=== PATIENT | male | born 1955 | race Hispanic/Latino ===

== ENCOUNTER 2017-09-25 09:56 | Observation (INO) | payer OTHER ==
[~2017-09-25] VITALS: Ht 170.2 cm; Wt 73.8 kg
[~2017-09-25 09:56] MED LIST: BENZ-51 PO; BUSP15TA3 PO; CLOP75TA14 PO; FURO20TA4 PO; HYDR-4068 PO; ISOS60TA4 PO; METF500T6 PO; NITR0.4T50 SL; RAMI2.5C15 PO; SIMV80TA7 PO; TRAM50TA4 PO
[2017-09-25 10:42] LABS: BASOPHILS % (AUTO) 0.4 % (0.0-5.0); EOSINOPHILS % (AUTO) 1.8 % (0.0-8.0); HEMATOCRIT 39.7 % (42-54); LYMPHOCYTES % (AUTO) 18.5 % (21.0-51.0); MEAN CORPUSCULAR HGB CONC 34.6 g/dL (32.0-36.0); MEAN CORPUSCULAR VOLUME 92.4 fL (79-99); MONOCYTES % (AUTO) 7.5 % (3.0-13.0); NEUTROPHILS % (AUTO) 71.8 % (40.0-77.0); PLATELET COUNT (AUTO) 92 K/uL (130-400); RED CELL DISTRIBUTION WIDTH 13.8 % (11.0-15.5); WHITE BLOOD COUNT (AUTO) 7.1 K/uL (4.8-10.8)
[2017-09-25 10:50] LABS: CREATININE 0.9 mg/dL (0.5-1.5); POTASSIUM 3.6 mmol/L (3.5-5.1)
[2017-09-25 10:53] LABS: INR 1.04 (0.85-1.15); PARTIAL THROMBOPLASTIN TIME 29.2 SEC (26.3-35.5); PROTHROMBIN TIME 10.9 SEC (9.6-11.6)
[2017-09-25 11:03] LABS: ALBUMIN 2.9 g/dL (3.5-5.0); BILIRUBIN,TOTAL 0.5 mg/dL (0.2-1.0); CREATINE KINASE MB 1.4 ng/mL (0.5-3.6); TOTAL PROTEIN, SERUM 6.2 g/dL (6.0-8.3)
[2017-09-25] MEDS ORDERED: SODIUM CHLORIDE 0.9% 1000ML 1,000 ML IV ONE (11:03)
[2017-09-25] MEDS ORDERED: ONDANSETRON HCL MDV 20ML 2 MG/ML VIAL ONE ×3 (11:03→23:52)
[2017-09-25] MEDS ORDERED: MORPHINE SULFATE 4 MG/1ML SYG ONE ×2 (11:03→17:33)
[2017-09-25 13:21] LABS: APPEARANCE,URINE Clear (CLEAR); BILIRUBIN,URINE Negative (NEGATIVE); COLOR,URINE Dark Yellow (YELLOW); GLUCOSE, URINE (UA) >=1000 mg/dL (NEGATIVE); KETONES,URINE Trace mg/dL (NEGATIVE); LEUKOCYTE ESTERASE ,URINE Negative (NEGATIVE); NITRATE,URINE Negative (NEGATIVE); OCCULT BLOOD,URINE Negative (NEGATIVE); PROTEIN,URINE POS 1+ (NEGATIVE)
[2017-09-25 13:39] LABS: RBC,URINE 0-1 /HPF (0-1); WBC,URINE 0-1 /HPF (0-1)
[2017-09-25 13:40] LABS: BACTERIA,URINE Rare /HPF (None Seen); MUCUS,URINE Few LPF (None Seen); SQUAMOUS EPITHELIAL CELL,UR Few /HPF (0-2)
[2017-09-25] MEDS ORDERED: IOPAMIDOL-370 75 ML VIAL IV ONE (22:40)
[2017-09-25] MEDS ORDERED: DIATR MEGLU/DIATRIZOATE SODIUM 30 ML BOTTLE ONE (22:54)
[2017-09-25] MEDS ORDERED: ACETAMINOPHEN 325 MG TAB ONE (22:55)
[2017-09-25] MEDS ORDERED: MORPHINE SULFATE 8 MG/ML VIAL ONE (22:57)
[2017-09-25] MEDS ORDERED: PANTOPRAZOLE SODIUM 80 MG in SODIUM CHLORIDE 0.9% 100 ML IV SCH (23:30)
[2017-09-25] MEDS ORDERED: LIDOCAINE HCL-MPF 1% 2ML VIAL IVP PRN (23:30)
[2017-09-25] MEDS ORDERED: CEFTRIAXONE 1GM/D5W 50ML 50 ML IV SCH (23:30)
[2017-09-25] MEDS ORDERED: POTASSIUM CHLORIDE 20 MEQ ERTAB PO PRN (23:30)
[2017-09-25] MEDS ORDERED: AZITHROMYCIN 500MG+NS 250ML 250 ML IV SCH (23:30)
[2017-09-25] MEDS ORDERED: INSULIN HUMULIN R 100 UNIT/ML 3ML SQ SCH (23:30)
[2017-09-25] MEDS ORDERED: GLUCAGON 1MG KIT 1 MG ML IM PRN (23:30)
[2017-09-25] MEDS ORDERED: POTASSIUM CHLORIDE 10% ELIXIR 20 MEQ/15 ML UDCUP PO PRN (23:30)
[2017-09-25] MEDS ORDERED: POTASSIUM CHLORIDE 20MEQ/100ML 100 ML IV PRN (23:30)
[2017-09-25] MEDS ORDERED: DEXTROSE 50%-WATER 50 ML DISP.SYRIN IV PRN (23:30)
[2017-09-25] MEDS ORDERED: AZITHROMYCIN 500MG+NS 250ML 250 ML IV ONE (23:33)
[2017-09-25] MEDS ORDERED: CEFTRIAXONE SODIUM 1 GM ONE (23:33)
[2017-09-25] MEDS ORDERED: SODIUM CHLORIDE 0.9% 100 ML IV ONE (23:36)
[2017-09-25] MEDS ORDERED: PHARMACY COMMUNICATION MISC SCH (23:45)
[2017-09-26] MEDS: CEFTRIAXONE SODIUM 1 GM IVP SCH
[2017-09-26] MEDS ORDERED: DOXYCYCLINE 100MG+NS 250ML 250 ML IV ONE (07:04)
[2017-09-26 08:42] VITALS: BP 112/62
[2017-09-26] MEDS ORDERED: ACETAMINOPHEN-CODEINE 300/30MG TAB PO PRN (11:30)
[2017-09-26] MEDS ORDERED: GUAIFENESIN-DM 200/20 MG 10 ML PO PRN (11:30)
[2017-09-26] MEDS: DOXYCYCLINE 100MG+NS 250ML 250 ML IV SCH ×2 (11:30→22:35)
[2017-09-26] MEDS ORDERED: POTASSIUM CHLORIDE 10% ELIXIR 20 MEQ/15 ML UDCUP PO PRN (11:30)
[2017-09-26] MEDS ORDERED: GLUCAGON 1MG KIT 1 MG ML IM PRN (11:30)
[2017-09-26] MEDS ORDERED: HYDRALAZINE HCL 20 MG/ML VIAL IV PRN (11:30)
[2017-09-26] MEDS ORDERED: POTASSIUM CHLORIDE 20MEQ/100ML 100 ML IV PRN (11:30)
[2017-09-26] MEDS ORDERED: ACETAMINOPHEN 325 MG TAB PO PRN ×2 (11:30)
[2017-09-26] MEDS ORDERED: POTASSIUM CHLORIDE 20 MEQ ERTAB PO PRN (11:30)
[2017-09-26] MEDS ORDERED: ONDANSETRON HCL 4 MG/2 ML VIAL IV PRN (11:30)
[2017-09-26] MEDS: INSULIN HUMULIN R 100 UNIT/ML 3ML SQ SCH ×3 (11:30→21:00)
[2017-09-26] MEDS ORDERED: NITROGLYCERIN 0.4 MG SL TAB SL PRN (11:30)
[2017-09-26] MEDS ORDERED: LACTULOSE 20 GM/30 ML UDCUP PO PRN (11:30)
[2017-09-26] MEDS ORDERED: DEXTROSE 50%-WATER 50 ML DISP.SYRIN IV PRN (11:30)
[2017-09-26] MEDS ORDERED: LIDOCAINE HCL-MPF 1% 2ML VIAL IVP PRN (11:30)
[2017-09-26] MEDS ORDERED: TRAMADOL HCL 50 MG TABLET PO PRN (11:30)
[2017-09-26] MEDS ORDERED: MAG HYDROX/AL HYDROX/SIMETH ES 30 ML SUSP UDCUP PO PRN (11:30)
[2017-09-26 12:15] LABS: HEMATOCRIT 37.1 % (42-54)
[2017-09-26] MEDS ORDERED: MORPHINE SULFATE 4 MG/1ML SYG ONE (14:12)
[2017-09-26 20:00] VITALS: BP 132/70
[2017-09-26] MEDS: ONDANSETRON HCL MDV 20ML 2 MG/ML VIAL IVP PRN (22:33)
[2017-09-26] MEDS: MORPHINE SULFATE 4 MG/1ML SYG IV PRN (22:35)
[2017-09-26] MEDS: PANTOPRAZOLE SODIUM 40 MG TABLET.DR PO SCH (22:36)
[2017-09-27] VITALS: BP 120/72
[2017-09-27] MEDS: CEFTRIAXONE SODIUM 1 GM IVP SCH (01:00)
[2017-09-27] MEDS: MORPHINE SULFATE 4 MG/1ML SYG IV PRN ×3 (03:07→20:47)
[2017-09-27 04:00] VITALS: BP 116/62
[2017-09-27 04:48] LABS: HEMATOCRIT 38.3 % (42-54); MEAN CORPUSCULAR HEMOGLOBIN 31.8 pg (27.0-33.0); MEAN CORPUSCULAR HGB CONC 34.2 g/dL (32.0-36.0); PLATELET COUNT (AUTO) 149 K/uL (130-400); RED BLOOD CELL COUNT(AUTO) 4.12 MIL/uL (4.50-6.20); RED CELL DISTRIBUTION WIDTH 13.7 % (11.0-15.5)
[2017-09-27 05:00] LABS: POTASSIUM 3.7 mmol/L (3.5-5.1)
[2017-09-27] MEDS: INSULIN HUMULIN R 100 UNIT/ML 3ML SQ SCH ×4 (06:22→20:48)
[2017-09-27 08:00] VITALS: BP 125/68
[2017-09-27] MEDS: PANTOPRAZOLE SODIUM 40 MG TABLET.DR PO SCH ×2 (08:44→20:48)
[2017-09-27] MEDS ORDERED: HYDROCODONE/ACETAMINOPHEN 10/325 MG TAB PO PRN (08:45)
[2017-09-27] MEDS ORDERED: ASPI-1026 PO (08:56)
[2017-09-27] MEDS ORDERED: METF10004 PO (08:56)
[2017-09-27 12:00] VITALS: BP 118/63
[2017-09-27] MEDS: DOXYCYCLINE 100MG+NS 250ML 250 ML IV SCH (12:08)
[2017-09-27] MEDS: PHENAZOPYRIDINE HCL 200 MG TABLET PO SCH ×3 (12:08→20:48)
[2017-09-27] MEDS: ONDANSETRON HCL MDV 20ML 2 MG/ML VIAL IVP PRN (12:09)
[2017-09-27 16:59] VITALS: BP 118/63
[2017-09-27 19:34] VITALS: BP 134/72
[2017-09-28] VITALS: BP 128/72
[2017-09-28] MEDS: CEFTRIAXONE SODIUM 1 GM IVP SCH (00:38)
[2017-09-28] MEDS: DOXYCYCLINE 100MG+NS 250ML 250 ML IV SCH ×2 (00:39→12:10)
[2017-09-28 04:00] VITALS: BP 132/76
[2017-09-28 04:45] LABS: HEMATOCRIT 38.6 % (42-54); MEAN CORPUSCULAR HEMOGLOBIN 32.8 pg (27.0-33.0); MEAN CORPUSCULAR HGB CONC 35.2 g/dL (32.0-36.0); MEAN CORPUSCULAR VOLUME 93.2 fL (79-99); PLATELET COUNT (AUTO) 206 K/uL (130-400); RED BLOOD CELL COUNT(AUTO) 4.14 MIL/uL (4.50-6.20); RED CELL DISTRIBUTION WIDTH 13.6 % (11.0-15.5); WHITE BLOOD COUNT (AUTO) 8.5 K/uL (4.8-10.8)
[2017-09-28 04:46] LABS: INR 0.98 (0.85-1.15); PARTIAL THROMBOPLASTIN TIME 25.9 SEC (26.3-35.5); PROTHROMBIN TIME 10.3 SEC (9.6-11.6)
[2017-09-28 05:04] LABS: ALBUMIN 2.5 g/dL (3.5-5.0); BILIRUBIN,TOTAL 0.3 mg/dL (0.2-1.0); POTASSIUM 3.4 mmol/L (3.5-5.1); TOTAL PROTEIN, SERUM 6.2 g/dL (6.0-8.3)
[2017-09-28 05:14] LABS: BAND NEUTROPHILS % (MANUAL) 16 % (0-2); LYMPHOCYTES % (MANUAL) 22 % (22-44); MONOCYTES % (MANUAL) 10 % (2-9); SEGMENTED NEUTROPHILS % 52 % (40-70)
[2017-09-28 05:15] LABS: MAN.DIFF COMMENT-IMPRESSION MANUAL DIFFERENTIAL; PLATELET MORPHOLOGY COMMENT ADEQUATE
[2017-09-28] MEDS: INSULIN HUMULIN R 100 UNIT/ML 3ML SQ SCH ×2 (07:02→12:11)
[2017-09-28] MEDS ORDERED: FAMO-136 PO (07:42)
[2017-09-28] MEDS ORDERED: DOXY100C2 PO (07:44)
[2017-09-28 08:00] VITALS: BP 137/76
[2017-09-28] MEDS: PANTOPRAZOLE SODIUM 40 MG TABLET.DR PO SCH (09:18)
[2017-09-28 12:00] VITALS: BP 126/75
== END 2017-09-28 14:20 | disposition home or self-care (01) ==
LOC: EDH 09:56 → EDHIP 15:15 → 3AH 09-26 20:09
PROVIDERS: ADMIT Family Medicine; ATTEND Family Medicine
DX: R50.9 Fever, unspecified (principal); D69.6 Thrombocytopenia, unspecified; E11.65 Type 2 diabetes mellitus with hyperglycemia; E78.5 Hyperlipidemia, unspecified; I10 Essential (primary) hypertension; I25.10 Atherosclerotic heart disease of native coronary artery without angina pectoris; K92.0 Hematemesis; Z95.1 Presence of aortocoronary bypass graft
CPT/HCPCS: 36415 ×4; 71046; 71250; 74176; 74177; 80048; 80053 ×2; 81001; 82550; 82553; 82948 ×8; 83880; 84484; 85014; 85018; 85025 ×2; 85027; 85610 ×2; 85730 ×2; 86000; 86757; 87040 ×2; 87880; 93005; 96365; 96366 ×2; 96372 ×2; 96375 ×2; 96376 ×2; 99285; A4218; G0378 ×71; J0456; J0696 ×4; J1815 ×2; J2270 ×9; J3490 ×5; J7030; Q9963; Q9967